=== PATIENT | male | born 1990 | race Caucasian/White ===

== ENCOUNTER 2019-05-06 10:09 | Emergency (ER) | payer BC, SELFPAY ==
[2019-05-06 11:07] LABS: Absolute Lymphocytes (CBC) 1.3 K/uL (0.7-4.9); Basophils % 0.5 % (0-1.3); Hematocrit 44.1 % (39.6-49.0); Lymphocytes % 26.7 % (15.3-44.8); MPV 9.1 fL (7.6-11.3); Protime INR 1.03; RBC Red Blood Cell Count 4.74 M/uL (4.33-5.43)
--- NOTE | 2019-05-06 11:12 | RAD REPORT ---
EXAM DESCRIPTION: RAD - Chest Single View - 05/06/2019 11:05 am CLINICAL HISTORY: chest pain, shortness of breath Chest pain. COMPARISON: No comparisons FINDINGS: Portable technique limits examination quality. The lungs are grossly clear. The heart is normal in size. No displaced fractures. IMPRESSION: No acute intrathoracic process suspected.
[2019-05-06 11:24] LABS: ALT/SGPT 25 U/L (12-78); AST/SGOT 13 U/L (15-37); Albumin 4.6 g/dL (3.4-5.0); Alkaline Phosphatase 69 U/L (45-117); BUN Blood Urea Nitrogen 11 mg/dL (7-18); Bicarbonate 27 mmol/L (21-32); Bilirubin Direct 0.3 mg/dL (0-0.2); Bilirubin Total 0.9 mg/dL (0.2-1.0); Glucose Level 109 mg/dL (74-106); Magnesium 2.2 mg/dL (1.8-2.4); NT PRO-BNP 12 pg/mL (<125); Potassium 3.5 mmol/L (3.5-5.1); Protein, Total 8.1 g/dL (6.4-8.2); Sodium Level 143 mmol/L (136-145); Troponin (Emerg Dept Use Only) < 0.02 ng/mL (0.0-0.045)
--- NOTE | 2019-05-06 12:21 | EDPHYS ---
Physician Documentation [facility] Name: Juan Cervantes Age: 28 yrs Sex: Male : 1990 Arrival Date: 05/06/2019 Time: 10:11 Bed 13 Private MD: ED Physician Tio Edmond HPI: 05/06 10:34 This 28 yrs old Male presents to ER via Ambulatory with complaints of jmm Dizziness, Shortness Of Breath. 10:34 The patient or guardian reports chest pain that is located primarily in the substernal [facility] area. The pain does not radiate. Associated signs and symptoms: Pertinent positives: lightheadedness, shortness of breath. The chest pain is described as sharp. Modifying factors: The symptoms are alleviated by nothing. the symptoms are aggravated by nothing. This is a 28 year old male with a history of anxiety that presents to the ED with complaints of chest pain which has been episodic over the past year. Episodes are described as sharp. Do not radiate. Patient stated earlier today he developed shortness of breath which has decreased in intensity. . Historical: - Allergies: 10:16 No Known Allergies; hb - Home Meds: 10:16 None [Active]; hb - PMHx: 10:16 Anxiety; hb - PSHx: 10:16 None; hb - Immunization history:: Adult Immunizations up to date. - Social history:: Smoking status: Patient/guardian denies using tobacco. - Ebola Screening: : No symptoms or risks identified at this time. ROS: 10:34 Constitutional: Negative for fever, chills, and weight loss. jmm 10:34 Cardiovascular: Positive for chest pain. 10:34 Respiratory: Positive for shortness of breath. 10:34 All other systems are negative. 10:34 Neuro: Positive for dizziness. jmm Exam: 10:34 Constitutional: This is a well developed, well nourished patient who is awake, alert, jmm and in no acute distress. Head/Face: atraumatic. Eyes: EOMI, no conjunctival erythema appreciated ENT: Moist Mucus Membranes Neck: Trachea midline, Supple Chest/axilla: Normal chest wall appearance and motion. Cardiovascular: Regular rate and rhythm. No edema appreciated Respiratory: Normal respirations, no respiratory distress appreciated Abdomen/GI: Non distended, soft Back: Normal ROM Skin: General appearance color normal MS/ Extremity: Moves all extremities, no obvious deformities appreciated, no edema noted to the lower extremities Neuro: Awake and alert, normal gait Psych: Behavior is normal, Mood is normal, Patient is cooperative and pleasant 10:34 Cardiovascular: Rate: normal, Rhythm: regular, Pulses: no pulse deficits are appreciated. 12:15 ECG was reviewed by the Attending Physician. [facility] Vital Signs: 10:16 BP 146 / 96; Pulse 98; Resp 16; Temp 98.2; Pulse Ox 100% on R/A; Weight 68.04 kg; hb Height 6 ft. 4 in. (193.04 cm); Pain 4/10; 11:25 BP 115 / 78; Pulse 70; Resp 18 S; Pulse Ox 97% on R/A; Pain 0/10; aa5 12:00 BP 135 / 85; Pulse 83; Resp 16 S; Pulse Ox 100% on R/A; aa5 10:16 Body Mass Index 18.26 (68.04 kg, 193.04 cm) hb MDM: 10:34 Patient medically screened. [facility] 12:16 ADRIAN Risk Score: TOTAL SCORE = 0. Data reviewed: vital signs, nurses notes. Counseling: [facility] I had a detailed discussion with the patient and/or guardian regarding: the historical points, exam findings, and any diagnostic results supporting the discharge/admit diagnosis, lab results, radiology results, the need for outpatient follow up. ED course: Patient is alert and non toxic in appearance in the ED. I discussed the need to follow up with PCP and otherwise given strict return precautions. PERC score negative. . 05/06 10:41 Order name: Basic Metabolic Panel; Complete Time: 11:46 [facility] 05/06 10:41 Order name: CBC with Diff; Complete Time: 11:16 [facility] 05/06 10:41 Order name: LFT's; Complete Time: 11:46 [facility] 05/06 10:41 Order name: Magnesium; Complete Time: 11:46 [facility] 05/06 10:41 Order name: NT PRO-BNP; Complete Time: 11:46 [facility] 05/06 10:41 Order name: PT-INR; Complete Time: 11:16 [facility] 05/06 10:41 Order name: Troponin (emerg Dept Use Only); Complete Time: 11:46 [facility] 05/06 10:41 Order name: XRAY Chest (1 view); Complete Time: 11:16 [facility] 05/06 10:41 Order name: EKG; Complete Time: 10:43 [facility] 05/06 10:41 Order name: Cardiac monitoring; Complete Time: 10:44 [facility] 05/06 10:41 Order name: EKG - Nurse/Tech; Complete Time: 10:55 [facility] 05/06 10:41 Order name: IV Saline Lock; Complete Time: 10:55 [facility] 05/06 10:41 Order name: Labs collected and sent; Complete Time: 10:55 [facility] 05/06 10:41 Order name: O2 Per Protocol; Complete Time: 10:45 [facility] 05/06 10:41 Order name: O2 Sat Monitoring; Complete Time: 10:45 jmm EC:15 Rate is 74 beats/min. Rhythm is regular. Right axis deviation noted. OH interval is jmm normal. QRS interval is normal. QT interval is normal. No Q waves. T waves are Normal. No ST changes noted. Administered Medications: No medications were administered Disposition: 05/06/19 12:20 Discharged to Home. Impression: Chest pain, unspecified. - Condition is Stable. - Discharge Instructions: Nonspecific Chest Pain. - Medication Reconciliation Form, Thank You Letter, Antibiotic Education, Prescription Opioid Use form. - Follow up: Private Physician; When: 2 - 3 days; Reason: Recheck today's complaints, Continuance of care, Re-evaluation by your physician. Signatures: Dispatcher [employer] EDMS Mario Diaz PA PA Sheyla Urias RN RN Joseph Palacios RN RN mg2 Corrections: (The following items were deleted from the chart) 12:34 12:20 05/06/2019 12:20 Discharged to Home. Impression: Chest pain, unspecified. mg2 Condition is Stable. Forms are Medication Reconciliation Form, Thank You Letter, Antibiotic Education, Prescription Opioid Use. Follow up: Private Physician; When: 2 - 3 days; Reason: Recheck today's complaints, Continuance of care, Re-evaluation by your physician. [facility]
--- NOTE | 2019-05-06 12:21 | ER ---
Nurse's Notes [facility] Name: Juan Cervantes Age: 28 yrs Sex: Male : 1990 Arrival Date: 05/06/2019 Time: 10:11 Bed 13 [facility] MD: Diagnosis: Chest pain, unspecified Presentation: 05/06 10:14 Presenting complaint: Left sided chest pain, SOB, nausea, and dizziness that started hb while sitting in chair at work 1 hr [employer]. Transition of care: patient was not received from another setting of care. Onset of symptoms was May 06, 2019. Risk Assessment: Do you want to hurt yourself or someone else? Patient reports no desire to harm self or others. Initial Sepsis Screen: Does the patient meet any 2 criteria? No. Patient's initial sepsis screen is negative. Does the patient have a suspected source of infection? No. Patient's initial sepsis screen is negative. Care prior to arrival: None. 10:14 Method Of Arrival: Ambulatory hb 10:14 Acuity: FARIDA 3 hb Historical: - Allergies: 10:16 No Known Allergies; hb - Home Meds: 10:16 None [Active]; hb - PMHx: 10:16 Anxiety; hb - PSHx: 10:16 None; hb - Immunization history:: Adult Immunizations up to date. - Social history:: Smoking status: Patient/guardian denies using tobacco. - Ebola Screening: : No symptoms or risks identified at this time. Screenin:45 Abuse screen: Denies threats or abuse. Nutritional screening: No deficits noted. aa5 Tuberculosis screening: No symptoms or risk factors identified. Fall Risk None identified. Assessment: 10:45 General: Appears comfortable, Behavior is calm, cooperative, Reports episode of chest aa5 pain and SOB that lasted approximately 40 minutes to 1 hour. Pt currently denies chest pain and denies SOB. Denies feeling ill. Pain: Denies pain. Neuro: Level of Consciousness is awake, alert, obeys commands, Oriented to person, place, time, situation. Cardiovascular: Heart tones S1 S2 present Edema is absent. Rhythm is regular. Respiratory: Airway is patent Respiratory effort is even, unlabored, Respiratory pattern is regular, symmetrical, Breath sounds are clear bilaterally. Denies cough. GI: Abdomen is flat, non-distended, Bowel sounds present X 4 quads. Abd is soft and non tender X 4 quads. Patient currently denies nausea, vomiting. : No signs and/or symptoms were reported regarding the genitourinary system. EENT: No signs and/or symptoms were reported regarding the EENT system. Derm: Skin is pink, warm \T\ dry. Musculoskeletal: Range of motion: intact in all extremities. 11:25 Reassessment: Patient is alert, oriented x 3, equal unlabored respirations, skin aa5 warm/dry/pink. Patient denies pain at this time. Vital Signs: 10:16 BP 146 / 96; Pulse 98; Resp 16; Temp 98.2; Pulse Ox 100% on R/A; Weight 68.04 kg; hb Height 6 ft. 4 in. (193.04 cm); Pain 4/10; 11:25 BP 115 / 78; Pulse 70; Resp 18 S; Pulse Ox 97% on R/A; Pain 0/10; aa5 12:00 BP 135 / 85; Pulse 83; Resp 16 S; Pulse Ox 100% on R/A; aa5 10:16 Body Mass Index 18.26 (68.04 kg, 193.04 cm) hb ED Course: 10:11 Patient arrived in ED. as 10:15 Triage completed. hb 10:16 Arm band placed on. hb 10:18 Mario Diaz PA is PHCP. [facility] 10:18 Tio Edmond MD is Attending Physician. jmm 10:24 Kiley Francois RN is Primary Nurse. aa5 10:43 EKG done, by marine services technician. reviewed by Tio Edmond MD. at1 10:45 Patient has correct armband on for positive identification. Placed in gown. Bed in low aa5 position. Call light in reach. Side rails up X2. conveyor monitor on. Pulse ox on. NIBP on. 10:50 Initial lab(s) drawn, by me, sent to lab. Inserted saline lock: 20 gauge in right aa5 antecubital area, using aseptic technique. Blood collected. 10:54 X-ray completed. Portable x-ray completed in exam room. Patient tolerated procedure sw well. 10:57 XRAY Chest (1 view) In Process Unspecified. EDMS 12:00 Report given to CAYDEN Ruiz. aa5 12:28 No provider procedures requiring assistance completed. IV discontinued, intact, mg2 bleeding controlled, No redness/swelling at site. Pressure dressing applied. Administered Medications: No medications were administered Outcome: 12:20 Discharge ordered by MD. lundberg 12: Discharged to home ambulatory, with family. mg2 12: Condition: stable 12:28 Discharge instructions given to patient, family, Instructed on discharge instructions, follow up and referral plans. Demonstrated understanding of instructions, follow-up care. 12:34 Patient left the ED. mg2 Signatures: Dispatcher [employer] EDMS Mario Diaz PA PA jmm Martinez, Amelia as Calderon, Audri, RN RN aa5 Kassandra Armstrong, precision mechanical instrument maker EKG Tat1 Sherley King Heather, CAYDEN RN Joseph Ya RN RN mg2
--- NOTE | 2019-05-06 16:07 | EKG ---
Test Date: 2019-05-06 Test Time: 10:22:36 Project Surveyor: ADIEL MEASUREMENT RESULTS: Intervals: Rate: 74 SC: 150 QRSD: 98 QT: 382 QTc: 424 Chilo: P: 73 SC: 150 QRS: 96 T: 69 INTERPRETIVE STATEMENTS: Normal sinus rhythm with sinus arrhythmia Rightward axis Borderline ECG No previous ECG available for comparison Electronically Signed On 05-06-19 16:06:11 CDT by Baron Silverman
== END 2019-05-06 12:34 | disposition home or self-care (01) ==
LOC: ER 10:09
DX: R07.9 Chest pain, unspecified (principal)
CPT/HCPCS: 36415; 71045; 80048; 80076; 83735; 83880; 84484; 85025; 85610; 93005